=== PATIENT | female | born 1980 | race Caucasian/White ===

== ENCOUNTER 2016-11-15 07:52 | Emergency (ER) | payer BC ==
--- NOTE | ~2016-11-15 | EKG ---
PATIENT: MAGALIE WALL UNIT #: [id number] Ventricular Rate: 71 BPM Atrial Rate: 71 BPM P-R Interval: 136 ms QRS Duration: 72 ms Q-T Interval: 374 ms QTC Calculation(Bezet): 406 ms P Eros: 76 degrees Calculated R Eros: 71 degrees Calculated T Eros: 54 degrees Diagnosis Line: Normal sinus rhythm Diagnosis Line: Normal ECG Diagnosis Line: No previous ECGs available Diagnosis Line: Confirmed by ANGELICA HYDE MD ([id number]) on Diagnosis Line: 11/16/2016 4:32:51 PM INTERPRETING MD: MARY ELLEN GERMAN
--- NOTE | ~2016-11-15 | US67 ---
[facility] A Service of [facility] & [facility] RADIOLOGY TEXT RESULTS PATIENT: MAGALIE WALL LOCATION: [facility] : 80 UNIT #: [id number] AGE: [address]: Stephanie Clark APRN SEX: F ORDER DR: [id number] [facility] [address] [place], [place] [address] [id number] E MR#: [id number] Acc #: [id number] NAME: MAGALIE WALL : 1980 SEX: F STUDY DATE/TIME: 11/15/2016 9:30 UNIT: [facility] ROOM: STUDY DESCRIPTION: US Gallbladder Attending Physician: Stephanie Clark A.P.R.N. Ordering Physician: Ed Davi Tamayo M.D. Primary Care Physician: Salome Bustos A.P.R.N. MEDICAL IMAGING REPORT This report is preliminary unless electronic signature is present EXAM Right quadrant ultrasound 11/15/2016 HISTORY Pain right upper quadrant pain for 2 months. Nausea, worse last 2 days. FINDINGS Real-time ultrasonography of the right quadrant performed. Visualized portions of pancreas are unremarkable. Some portions are obscured by bowel gas artifact and could be further assessed with CT if clinically warranted. The gallbladder is not pathologically dilated. No gallstones or pericholecystic fluid. No gallbladder wall thickening. Gallbladder wall measures about 1.3 mm in thickness. Inferior vena cava and hepatic veins appear patent. The common bile duct measures up to approximately 2.5 mm in diameter. The portal vein is patent with normal direction of flow. The liver, where visualized, appears normal in size, contour and echotexture. Liver measures about 10.3 cm in length. Some portions of the hepatic dome are poorly visualized. Portal vein is patent with normal direction of flow. Right kidney measures 10.5 cm in greatest length. No hydronephrosis or nephrolithiasis. No cystic or solid mass lesion and no perinephric fluid collection. IMPRESSION 1. Gallbladder is normal in appearance. There is no biliary ductal dilatation. 2. Visualized portions of liver unremarkable. 3. Right kidney normal. 4. Visualized pancreas unremarkable. Some portions of pancreatic tail obscured by bowel gas artifact. Pancreas could be further evaluated with CT if it would assist in clinical management. Dictated by... [facility] A Service of [facility] RADIOLOGY TEXT RESULTS PATIENT: MAGALIE WALL LOCATION: [facility] : 80 UNIT #: [id number] AGE: [address]: Stephanie Clark APRN SEX: F ORDER DR: Benny Obregon M.D. THIS IS AN ELECTRONICALLY VERIFIED REPORT Benny Obregon M.D. at 11/16/2016 9:09 AM GERALD/florencio TD: 11/15/2016 11:12 JOB #: [id number] MEDICAL IMAGING REPORT Page 1 of 1 COPY
--- NOTE | ~2016-11-15 | CR72 ---
[facility] A Service of [facility] & [facility] RADIOLOGY TEXT RESULTS PATIENT: MAGALIE WALL LOCATION: [facility] : 80 UNIT #: [id number] AGE: [address]: Stephanie Clark APRN SEX: F ORDER DR: [id number] [facility] [address] [place], [place] [address] [id number] E MR#: [id number] Acc #: [id number] NAME: MAGALIE WALL : 1980 SEX: F STUDY DATE/TIME: 11/15/2016 7:24 UNIT: [facility] ROOM: STUDY DESCRIPTION: CR Chest Single View Portable Attending Physician: Stephanie Clark A.P.R.N. Ordering Physician: [facility] Primary Care Physician: Salome Bustos A.P.R.N. MEDICAL IMAGING REPORT This report is preliminary unless electronic signature is present EXAM Portable chest x-ray 11/2016 HISTORY Chest pain. Chest pain midsternum radiating to the side. Nausea, gas pain began this a.m. FINDINGS AP radiograph of the chest is presented. No comparisons. Mild dextroscoliosis lower thoracic spine. No acute-appearing bony abnormality. Heart and mediastinum normal in size and contour. Lungs are well inflated bilaterally. No evidence of acute infectious or inflammatory disease. No suspicious nodule. There is slight blunting of the right lateral costophrenic sulcus which could reflect pleural thickening or trace right pleural effusion. No pneumothorax. No suspicious nodule. Dictated by... Benny Obregon M.D. THIS IS AN ELECTRONICALLY VERIFIED REPORT Benny Obregon M.D. at 11/16/2016 9:16 AM GERALD/jennifer TD: 11/15/2016 09:40 JOB #: [id number] MEDICAL IMAGING REPORT Page 1 of 1 COPY
[2016-11-15 07:58] LABS: URINE SOURCE CLEAN CATCH
[2016-11-15 08:05] LABS: URINE APPEARANCE CLEAR; URINE BILIRUBIN NEG (NEG); URINE BLOOD NEG (NEG); URINE COLOR YELLOW; URINE GLUCOSE NEG (NEG); URINE KETONE NEG (NEG); URINE LEUKOCYTE ESTERASE 2+ (NEG); URINE NITRATE NEG (NEG); URINE PH 7.5 (5-8); URINE PROTEIN NEG (NEG); URINE SPECIFIC GRAVITY 1.008 (1.003-1.035); URINE UROBILINOGEN 0.2 MG/DL (NEG)
[2016-11-15 08:07] LABS: POC - CKMB <1.0 ng/mL (0.0-7.9); POC - TROPONIN <0.05 ng/mL (<=0.05)
[2016-11-15 08:07] LABS: BASOPHIL# 0.1 X10e3 (0-0.3); BASOPHIL% 0.9 % (0-2.5); EOSINOPHIL# 0.3 X10e3 (0-0.7); HEMATOCRIT 42.1 % (35.0-45.0); HEMOGLOBIN 13.7 gm/dL (12.0-16.0); LYMPHOCYTE# 1.3 X10e3 (1.0-3.5); LYMPHOCYTE% 20.7 % (17.0-45.0); MEAN CELL VOLUME 89.3 FL (83-96); MEAN CORPUSCULAR HGB CONC 32.5 g/dL (30-36); MEAN PLATELET VOLUME 7.9 FL (6.5-11.5); MONOCYTE# 0.4 X10e3 (0-1.0); NEUTROPHIL# 4.3 X10e3 (1.5-7.1); NEUTROPHIL% 67.4 % (40-75); PLATELET COUNT 256 X10e3 (140-420); RED BLOOD COUNT 4.71 X10e (3.90-5.30); RED CELL DISTRIBUTION WIDTH 13.6 % (11.0-15.5); WHITE BLOOD COUNT 6.3 X10e3 (4.0-10.5)
[2016-11-15 08:08] LABS: URINE BACTERIA AUWI NEG (NEGATIVE); URINE SQUAMOUS EPITHELIAL CELL NONE SEEN /[HPF]
[2016-11-15 08:14] LABS: DIFF IND NO
[2016-11-15 08:18] LABS: CULTURE INDICATED? NO; URINE YEAST PRESENT
[2016-11-15 08:34] LABS: ALBUMIN SERUM 5.3 g/dL (3.5-5.0); BILIRUBIN, DIRECT 0.1 mg/dL (0.0-0.2); BILIRUBIN,INDIRECT 0.6 mg/dL (0.0-0.9); BILIRUBIN,TOTAL 0.7 mg/dL (0.2-2.0); BUN/CREATININE RATIO 13.33; CALCIUM SERUM 9.6 mg/dL (8.4-10.2); CREATININE SERUM 0.6 mg/dL (0.6-1.4); GLOM FILT RATE Estimated 117.3 mL/min (>60); POTASSIUM 3.9 mmol/L (3.5-5.1); PROTEIN TOTAL SERUM 8.5 g/dL (6.0-8.3)
[2016-11-15 09:23] LABS: POC - CKMB <1.0 ng/mL (0.0-7.9); POC - TROPONIN <0.05 ng/mL (<=0.05)
[2017-01-14] MEDS ORDERED: OMEPRAZOLE40 M1 PO (15:30)
[2017-01-14] MEDS ORDERED: CLARITIN10 M2 PO (15:31)
== END 2016-11-15 11:00 | disposition home or self-care (01) ==
LOC: CED 07:52
PROVIDERS: Nurse Practitioner
DX: R10.11 Right upper quadrant pain (principal); R11.0 Nausea; Z88.1 Allergy status to other antibiotic agents
CPT/HCPCS: 36415; 71010; 76705; 80048; 80076; 81003; 82553; 84484; 84703; 85025; 93005; 96374; 99284

== ENCOUNTER 2016-11-17 05:32 | Emergency (ER) | payer BC ==
--- NOTE | ~2016-11-17 | CT2 ---
[facility] A Service of [facility] & [facility] RADIOLOGY TEXT RESULTS PATIENT: MAGALIE WALL LOCATION: [facility] : 80 UNIT #: [id number] AGE: [address]: Corky Leary MD SEX: F ORDER DR: [id number] [place] [address] [place], [place] [address] [id number] E MR#: [id number] Acc #: [id number] NAME: MAGALIE WALL : 1980 SEX: F STUDY DATE/TIME: 11/17/2016 5:53 UNIT: [facility] ROOM: STUDY DESCRIPTION: CT Abd and Pelv W Cont Attending Physician: Corky Leary M.D. Ordering Physician: Flako Méndez M.D. Primary Care Physician: Salome Bustos A.P.R.N. MEDICAL IMAGING REPORT This report is preliminary unless electronic signature is present EXAM CT abdomen and pelvis with contrast. HISTORY Whole abdominal pain for 2 months with nausea. TECHNIQUE The patient was given 100 mL of Isovue-370 and axial 5 mm images were obtained through the abdomen and pelvis. This CT exam was performed with one or more of the following radiation dose reduction techniques: automatic exposure control, adjustment of mA and/or kV according to patient size, and iterative reconstruction. FINDINGS The lung bases are clear except for a calcified granuloma in the medial right base. The liver, gallbladder, spleen, pancreas, adrenal glands and kidneys are normal. The aorta is normal in size and there is no adenopathy. The bowel is normal. The appendix is normal. There is a small amount of free fluid in the pelvis. The uterus appears to have an exophytic fibroid projecting over the anterior margin. This is a well-circumscribed 4.8 x 3.1 cm lesion that has a broad base attaching it to the fundus of the uterus. It is isodense with the uterus. A normal right ovary is visible and the left ovary is also visible and it has a 2.7 cm cyst. These ovaries are away from the anterior exophytic lesion. The bladder is normal. The bones are unremarkable. IMPRESSION 1. There is a solid well-circumscribed mass projecting off of the upper portion of the uterine fundus consistent with a uterine fibroid. It is relatively isodense to the rest of the uterine tissue. 2. 2.7 cm left ovarian cyst with a small amount of free fluid in the STS. [facility] A Service of [facility] & [facility] RADIOLOGY TEXT RESULTS PATIENT: MAGALIE WALL LOCATION: [facility] : 80 UNIT #: [id number] AGE: [address]: Corky Leary MD SEX: F ORDER DR: pelvis. 3. Normal appendix. 4. Otherwise normal. Dictated by... Timothy Alvarenga M.D. THIS IS AN ELECTRONICALLY VERIFIED REPORT Timothy Alvarenga M.D. at 11/17/2016 11:36 AM LINDY/thomas TD: 11/17/2016 10:02 JOB #: [id number] MEDICAL IMAGING REPORT Page 1 of 1 COPY
[2016-11-17 05:16] LABS: BASOPHIL% 0.5 % (0-2.5); EOSINOPHIL# 0.2 X10e3 (0-0.7); EOSINOPHIL% 4.4 % (0.0-7.0); HEMATOCRIT 39.8 % (35.0-45.0); HEMOGLOBIN 12.9 gm/dL (12.0-16.0); LYMPHOCYTE# 1.1 X10e3 (1.0-3.5); LYMPHOCYTE% 19.9 % (17.0-45.0); MEAN CELL VOLUME 89.6 FL (83-96); MEAN CORPUSCULAR HEMOGLOBIN 29.2 PG (28-34); MEAN CORPUSCULAR HGB CONC 32.5 g/dL (30-36); MEAN PLATELET VOLUME 7.8 FL (6.5-11.5); MONOCYTE# 0.5 X10e3 (0-1.0); MONOCYTE% 8.7 % (3.0-12.0); NEUTROPHIL# 3.7 X10e3 (1.5-7.1); NEUTROPHIL% 66.5 % (40-75); PLATELET COUNT 226 X10e3 (140-420); RED BLOOD COUNT 4.44 X10e (3.90-5.30); RED CELL DISTRIBUTION WIDTH 13.3 % (11.0-15.5); WHITE BLOOD COUNT 5.5 X10e3 (4.0-10.5)
[2016-11-17 05:18] LABS: DIFF IND NO
[2016-11-17 05:30] LABS: URINE SOURCE CLEAN CATCH
[2016-11-17 05:41] LABS: URINE APPEARANCE CLEAR; URINE BILIRUBIN NEG (NEG); URINE BLOOD TRACE (NEG); URINE COLOR YELLOW; URINE GLUCOSE NEG (NEG); URINE KETONE NEG (NEG); URINE LEUKOCYTE ESTERASE TRACE (NEG); URINE NITRATE NEG (NEG); URINE PROTEIN NEG (NEG); URINE SPECIFIC GRAVITY 1.007 (1.003-1.035); URINE UROBILINOGEN 0.2 MG/DL (NEG)
[2016-11-17 05:42] LABS: ALBUMIN SERUM 4.8 g/dL (3.5-5.0); BILIRUBIN, DIRECT 0.2 mg/dL (0.0-0.2); BILIRUBIN,INDIRECT 0.7 mg/dL (0.0-0.9); BILIRUBIN,TOTAL 0.9 mg/dL (0.2-2.0); BUN/CREATININE RATIO 15.71; CALCIUM SERUM 9.1 mg/dL (8.4-10.2); CREATININE SERUM 0.7 mg/dL (0.6-1.4); GLOM FILT RATE Estimated 111.5 mL/min (>60); POTASSIUM 3.6 mmol/L (3.5-5.1); PROTEIN TOTAL SERUM 7.8 g/dL (6.0-8.3)
[2016-11-17 05:43] LABS: CULTURE INDICATED? YES; URINE BACTERIA AUWI NEG (NEGATIVE); URINE SQUAMOUS EPITHELIAL CELL NONE SEEN /[HPF]
[2016-11-17 05:57] LABS: URBCS1 AUWI 0-2 /[HPF] (0-2)
[2017-01-14] MEDS ORDERED: OMEPRAZOLE40 M1 PO (15:30)
[2017-01-14] MEDS ORDERED: CLARITIN10 M2 PO (15:31)
== END 2016-11-17 07:38 | disposition home or self-care (01) ==
LOC: CED 05:32
PROVIDERS: Emergency Medicine
DX: R10.9 Unspecified abdominal pain (principal); R11.2 Nausea with vomiting, unspecified; Z88.1 Allergy status to other antibiotic agents
CPT/HCPCS: 74177; 80048; 80076; 81003; 82150; 83690; 84703; 85025; 87086; 96361; 96374; 96375; 99284; C9113; J2765; Q9967

== ENCOUNTER → 2017-01-05 | Outpatient (CLI) | payer BC ==
[~2017-01-05] MED LIST: CLARITIN10 M2 PO; OMEPRAZOLE40 M1 PO
--- NOTE | ~2017-01-05 | NM22 ---
[facility] A Service of [facility] RADIOLOGY TEXT RESULTS PATIENT: MAGALIE WALL LOCATION: [facility] : 80 UNIT #: [id number] AGE: [address]: Andriy Jones MD SEX: F ORDER DR: [id number] [place] [id number] [place], [place] [address] [id number] O MR#: [id number] Acc #: [id number] NAME: MAGALIE WALL : 1980 SEX: F STUDY DATE/TIME: 01/05/2017 13:22 UNIT: [facility] ROOM: STUDY DESCRIPTION: CRISS Hepatobiliary W GB Pharm Attending Physician: Andriy Jones M.D. Referring Physician: Andriy Jones M.D. Ordering Physician: Andriy Jones M.D. Primary Care Physician: Diana Shah M.D. MEDICAL IMAGING REPORT This report is preliminary unless electronic signature is present EXAM HIDA scan with Kinevac CCK, 01/05/2017. HISTORY Right upper quadrant abdominal pain, nausea, abdominal gas and constipation, full feeling after eating with heartburn. Symptoms began August 2016 and have worsened. TECHNIQUE The patient received an intravenous injection of 6 mCi of technetium-99m tagged Choletec for hepatobiliary imaging. 1 hour following the injection of the radiopharmaceutical, the patient received an intravenous injection 1.2 mcg of Kinevac. FINDINGS There is homogeneous distribution of the radiotracer throughout the liver. Gallbladder activity was seen by 15 minutes postinjection of the radiopharmaceutical. Following Kinevac injection, the gallbladder ejection fraction was 29%, which is borderline low (normal is greater than 30%). IMPRESSION Borderline low gallbladder ejection fraction of 29%. Dictated by... Luis Chen M.D. THIS IS AN ELECTRONICALLY VERIFIED REPORT Luis Chen M.D. at 01/06/2017 6:17 AM HARMAN/pedro TD: 01/05/2017 16:01 [facility] A Service of [facility] RADIOLOGY TEXT RESULTS PATIENT: MAGALIE WALL LOCATION: [facility] #: [id number] : [birth year] UNIT #: [id number] AGE: [address]: Andriy Jones MD SEX: F ORDER DR: JOB #: [id number] MEDICAL IMAGING REPORT Page 1 of 1 COPY
== END | disposition home or self-care (01) ==
LOC: CNUC 12:09
DX: R10.13 Epigastric pain (principal)
CPT/HCPCS: 78227; A9537; J2805

== ENCOUNTER → 2017-01-17 | Day surgery (SDC) | payer BC ==
--- NOTE | ~2017-01-17 | OR ---
Unit #: [id number] #: [id number] Patient: MAGALIE WALL [id number] [address] [address] [id number] O MR#: [id number] NAME: MAGALIE WALL. ROOM: Date of Procedure: 01/17/2017 Admission Date: 01/17/2017 Surgeon: Andriy Jones M.D. : 1980 Attending Physician: Andriy Jones M.D. Primary Care Physician: Diana Shah M.D. OPERATIVE REPORT PRIMARY CARE PHYSICIAN Diana Shah M.D. PREOPERATIVE DIAGNOSES The patient has a history of anorexia, dyspepsia, nausea, and weight loss. In addition, she also mentions history of early satiety. Lastly, she has history of bilateral lower quadrant abdominal pain and increasing constipation. PROCEDURES PERFORMED Upper gastrointestinal endoscopy and biopsy as well as colonoscopy with biopsies. POSTOPERATIVE DIAGNOSES For upper endoscopy, completely normal examination up to third part of duodenum. A biopsy obtained from the antrum for CLOtest. In addition, biopsy was also obtained from the deep descending duodenum to look for any evidence of partial villous atrophy or celiac disease. For colonoscopy, completely normal examination up to cecum and terminal ileum. The quality of the prep was excellent. Multiple random colonic biopsies were obtained from throughout the colon. The patient did not have any polyps nor any diverticula or hemorrhoids. RECOMMENDATIONS The patient will be started on Linzess 145 mcg p.o. daily. In addition, she will have a gastric emptying study. She will be followed up in the office in 6 to 8 weeks' time. SEDATION USED MAC. DESCRIPTION OF PROCEDURE Following detailed explanation of the potential risks and complications of an upper endoscopy and a colonoscopy, namely perforation, bleeding, and complications related to sedation, the patient was brought to GI lab, laid in the left lateral decubitus position. Lubricated tip of the Olympus video upper endoscope was passed through bite block into the proximal esophagus under direct vision. The entire esophageal mucosa was examined and appeared normal. Z-line was nicely demarcated, there being no esophagitis or hiatus hernia. The scope was then advanced into the gastric cavity, the latter was insufflated. Mucosa of the fundus, body, Unit #: [id number] #: [id number] Patient: GATTON,MAGALIE S and antrum was examined and appeared unremarkable. Pylorus was intubated with visualization of the normal duodenal bulb and second and third part of the duodenum. Multiple biopsies were obtained from the deep descending duodenal folds to look for any evidence of partial villous atrophy or celiac disease. Upon withdrawal and retroflexion, incisura, cardia, and greater curve examined, and no additional findings noted. Biopsies were also obtained from the antrum for CLOtest. The scope was withdrawn in the distal esophagus. The entire esophageal mucosa was examined all the way up to pharynx. No additional findings noted. The examination table was then turned by 180 degrees, and the patient was positioned for a colonoscopy. A digital rectal examination was performed, which was normal. Lubricated tip of the Olympus video colonoscope was inserted through the anus and advanced under direct vision. The scope was advanced and passed up to sigmoid into descending colon. No diverticula were noticed in this area. The scope tip was then navigated all the way up to cecum with visualization of the ileocecal valve and the appendiceal orifice. Preparation was excellent with good visualization, and photodocumentation was obtained. Last several inches of terminal ileum also visualized after intubation of the ileocecal valve and appeared normal. Successive segments of the colonic mucosa were examined upon withdrawal and appeared unremarkable. There being no polyps, mass lesions, AVMs, or diverticula. The patient did not have any hemorrhoids at anal verge. Multiple random colonic biopsies were obtained from the entire colon to look for any evidence of microscopic or collagenous colitis. The scope was withdrawn. The patient returned to the recovery area. She tolerated the procedure without any postprocedure complications. Dictated by... Meño Salazar/natanael TD: 01/17/2017 08:13 JOB #: [id number] OPERATIVE REPORT Page 1 of 1 X Andriy Jones MD X PROCEDURE OPERATIVE NOTE
== END | disposition home or self-care (01) ==
LOC: COPS 05:59
DX: K52.9 Noninfective gastroenteritis and colitis, unspecified (principal); K21.9 Gastro-esophageal reflux disease without esophagitis; Z88.1 Allergy status to other antibiotic agents; Z88.8 Allergy status to other drugs, medicaments and biological substances; Z79.899 Other long term (current) drug therapy; Z98.890 Other specified postprocedural states
CPT/HCPCS: 87077; 88305; J2250

== ENCOUNTER → 2017-01-24 | Outpatient (CLI) | payer BC ==
--- NOTE | ~2017-01-24 | NM19 ---
[facility] A Service of [facility] & [facility] RADIOLOGY TEXT RESULTS PATIENT: MAGALIE WALL LOCATION: [facility] : 80 UNIT #: [id number] AGE: [address]: Diana Shah MD SEX: F ORDER DR: [id number] [facility] [address] [place], [place] [address] [id number] O MR#: [id number] Acc #: [id number] NAME: MAGALIE WALL : 1980 SEX: F STUDY DATE/TIME: 01/24/2017 7:19 UNIT: [facility] ROOM: STUDY DESCRIPTION: NM Gastric Emptying Study Attending Physician: Diana Shah M.D. Referring Physician: Thee Shah M.D. Ordering Physician: Diana Shah M.D. Primary Care Physician: Diana Shah M.D. MEDICAL IMAGING REPORT This report is preliminary unless electronic signature is present EXAM Gastric emptying scan, 01/24/2017 HISTORY Nausea and vomiting with abdominal bloating since September 2016. FINDINGS The patient ingested 589 mcCi of technetium 99m tagged sulfur colloid in eggs. Images of the upper abdomen were obtained for 4 hours. After 1 hour the stomach was 43% empty, after 2 hours the stomach was 69% empty and after 4 hours the stomach was 93% empty. Normal range is greater than 60% empty after 2 hours of imaging and greater than 90% empty after 4 hours of imaging. IMPRESSION Normal gastric emptying after 2 and 4 hours of imaging. Dictated by... Luis Chen M.D. THIS IS AN ELECTRONICALLY VERIFIED REPORT Luis Chen M.D. at 01/25/2017 2:10 PM Manuel TD: 01/24/2017 15:44 JOB #: [id number] MEDICAL IMAGING REPORT Page 1 of 1 COPY
== END | disposition home or self-care (01) ==
LOC: CNUC 06:32
DX: R10.13 Epigastric pain (principal); R11.2 Nausea with vomiting, unspecified
CPT/HCPCS: 78264; A9541